=== PATIENT | female | born 1965 | race Two or more races ===

== ENCOUNTER 2016-07-11 21:01 | Inpatient (IN) | payer OTHER ==
[~2016-07-11] VITALS: Ht 160 cm; Wt 87.5 kg
[2016-07-11 21:01] VITALS: BP 124/83
[2016-07-11] MEDS ORDERED: Enoxaparin 80mg Inj SUBQ ONE (21:15)
[2016-07-11 21:33] LABS: BASOPHILS % (AUTO) 1.1 % (0.0-2.0); EOSINOPHILS % (AUTO) 1.1 % (0.0-3.0); LYMPHOCYTES % (AUTO) 40.7 % (20.0-45.0); MEAN CORPUSCULAR HEMOGLOBIN 29.8 PG (27.0-31.0); MEAN CORPUSCULAR HGB CONC 33.9 G/DL (32.0-36.0); MEAN CORPUSCULAR VOLUME 88 FL (80-99); MEAN PLATELET VOLUME 8.3 FL (6.5-10.1); MONOCYTES % (AUTO) 5.3 % (1.0-10.0); NEUTROPHILS % (AUTO) 51.8 % (45.0-75.0); PLATELET COUNT 207 K/UL (150-450); RED BLOOD COUNT 4.21 M/UL (4.20-5.40); RED CELL DISTRIBUTION WIDTH 12.9 % (11.6-14.8); WHITE BLOOD COUNT 10.8 K/UL (4.8-10.8)
--- NOTE | 2016-07-11 21:43 | Emergency Room Report ---
History of Present Illness General Chief Complaint: Chest Pain Source: Patient, EMS Present Illness HPI This is a 51-year-old female with history hypertension. She presents with chief complaint of chest pain this started around noon today. She was at work when this happened. She was mild initially but through the day got worse. Worse with exertion. When she became short of breath and diaphoretic she went to urgent care. Pain was 8/10. Worse with exertion. Better with rest. She also has radiation to the left arm. Urgent care gave her aspirin and nitroglycerin. 911 was called. She felt better now. Allergies: Coded Allergies: PENICILLINS (Unverified Allergy, Unknown, 07/11/16) Patient History Past Medical History: see triage record, old chart reviewed, HTN Past Surgical History: other Pertinent Family History: none Social History: Denies: smoking Last Menstrual Period: n/a Now: No Immunizations: other Reviewed Nursing Documentation: PMH: Agreed, PSxH: Agreed Review of Systems Eye: Denies: blurred vision, eye pain ENT: Denies: ear pain, nose congestion, throat swelling Respiratory: Denies: cough, shortness of breath Cardiovascular: Reports: chest pain, Denies: palpitations Gastrointestinal: Denies: abdominal pain, diarrhea, nausea, vomiting Musculoskeletal: Denies: back pain, joint pain Skin: Denies: rash Neurological: Denies: headache, numbness Endocrine: Denies: increased thirst, increased urine Hematologic/Lymphatic: Denies: easy bruising All Other Systems: negative except mentioned in HPI Physical Exam Vital Signs Date Time Temp Pulse Resp B/P Pulse Ox O2 Delivery O2 Flow Rate FiO2 07/11/16 20:52 98.4 84 18 150/82 96 Room Air vitals with hypertension. Blood pressure now is 120/76 Sp02 EP Interpretation: reviewed, normal General Appearance: well appearing, no apparent distress, alert Head: normocephalic, atraumatic Eyes: bilateral eye EOMI, bilateral eye PERRL ENT: hearing grossly normal, normal pharynx Neck: full range of motion, supple, no meningismus Respiratory: chest non-tender, lungs clear, normal breath sounds Cardiovascular #1: regular rate, rhythm, no murmur Gastrointestinal: normal bowel sounds, non tender, no mass, no organomegaly, no bruit, non-distended Musculoskeletal: back normal, normal range of motion Neurologic: alert, oriented x3 Psychiatric: mood/affect normal Skin: warm/dry Medical Decision Making Diagnostic Impression: Primary Impression: ACS (acute coronary syndrome) ER Course Patient presents with symptom concerning for ACS and unstable angina. EKG showed no ST elevation. Troponin negative. No evidence of PE, dissection, HI, pneumonia to name a few. Since patient is asymptomatic now, with try to transfer to [place] based on her insurance. If unable will admit here to Dr. Pruitt. Patient already received aspirin and nitroglycerin. I gave her Lovenox here. Beta sinai is held this moment because initial blood pressure was in the low 100. Laboratory Tests Test 07/11/16 21:17 White Blood Count 10.8 K/UL (4.8-10.8) Red Blood Count 4.21 M/UL (4.20-5.40) Hemoglobin 12.5 G/DL (12.0-16.0) Hematocrit 37.0 % (37.0-47.0) Mean Corpuscular Volume 88 FL (80-99) Mean Corpuscular Hemoglobin 29.8 PG (27.0-31.0) Mean Corpuscular Hemoglobin Concent 33.9 G/DL (32.0-36.0) Red Cell Distribution Width 12.9 % (11.6-14.8) Platelet Count 207 K/UL (150-450) Mean Platelet Volume 8.3 FL (6.5-10.1) Neutrophils (%) (Auto) 51.8 % (45.0-75.0) Lymphocytes (%) (Auto) 40.7 % (20.0-45.0) Monocytes (%) (Auto) 5.3 % (1.0-10.0) Eosinophils (%) (Auto) 1.1 % (0.0-3.0) Basophils (%) (Auto) 1.1 % (0.0-2.0) Prothrombin Time 10.0 SEC (9.30-11.50) Prothromb Time International Ratio 1.0 (0.9-1.1) Activated Partial Thromboplast Time 25 SEC (23-33) Sodium Level 140 mEQ/L (135-145) Potassium Level 4.1 mEQ/L (3.4-4.9) Chloride Level 100 mEQ/L (98-107) Carbon Dioxide Level 23 mEQ/L (20-30) Anion Gap 17 (5-15) H Blood Urea Nitrogen 24 mg/dL (7-23) H Creatinine 0.7 mg/dL (0.5-0.9) Estimat Glomerular Filtration Rate > 60 mL/min (>60) Glucose Level 117 mg/dL (74-106) H Calcium Level 9.4 mg/dL (8.6-10.2) Total Bilirubin < 0.2 mg/dL (0.0-1.2) Aspartate Amino Transf (AST/SGOT) 27 U/L (5-40) Alanine Aminotransferase (ALT/SGPT) 33 U/L (3-33) Alkaline Phosphatase 56 U/L (35-104) Total Creatine Kinase 65 U/L (26-140) Creatine Kinase MB < 1.5 ng/mL (< 3.8) Creatine Kinase MB Relative Index 2.3 Troponin I < 0.30 ng/mL (<=0.30) Pro-B-Type Natriuretic Peptide 23 pg/mL (0-125) Total Protein 7.2 g/dL (6.6-8.7) Albumin 4.4 g/dL (3.5-5.2) Globulin 2.8 g/dL Albumin/Globulin Ratio 1.5 (1.0-2.7) Lab Results Impression labs unremarkable EKG Diagnostic Results Rate: normal Rhythm: NSR ST Segments: no acute changes Rhythm Strip Diag. Results EP Interpretation: yes Rate: 83 Rhythm: NSR, no PVC's, no ectopy Chest X-Ray Diagnostic Results EP Interpretation: Yes Findings: no consolidation, no effusion, no pneumothorax, no acute cardiopulmonary disease Number of Views: 1 Last Vital Signs Date Time Temp Pulse Resp B/P Pulse Ox O2 Delivery O2 Flow Rate FiO2 07/11/16 21:01 98.4 87 18 124/83 96 Room Air Status: improved Disposition: ADMITTED INPATIENT Condition: Serious Referrals: GILDA,REFERRING (PCP) ANNA RUTHERFORD M.D. Jul 11, 2016 21:43
[2016-07-11 21:48] LABS: ALANINE AMINOTRANSFERASE 33 U/L (3-33); ALBUMIN/GLOBULIN RATIO 1.5 (1.0-2.7); ANION GAP 17 (5-15); ASPARTATE AMINO TRANSFERASE 27 U/L (5-40); CALCIUM 9.4 mg/dL (8.6-10.2); CARBON DIOXIDE 23 mEQ/L (20-30); CHLORIDE 100 mEQ/L (98-107); CREATININE 0.7 mg/dL (0.5-0.9); GLOMERULAR FILTRATION RATE > 60 mL/min (>60); HEMOLYSIS 128; POTASSIUM 4.1 mEQ/L (3.4-4.9); SODIUM 140 mEQ/L (135-145); TOTAL PROTEIN 7.2 g/dL (6.6-8.7); TROPONIN I < 0.30 ng/mL (<=0.30)
[2016-07-11 21:59] LABS: CKMB < 1.5 ng/mL (< 3.8)
[2016-07-11] MEDS ORDERED: LIPITOR40 MG ORAL (22:18)
[2016-07-11] MEDS ORDERED: Nitroglycerin 2% oint pkt TOPIC ONE (22:30)
[2016-07-11] MEDS ORDERED: Metoprolol 5mg/5ml Inj IVP ONE (22:30)
[2016-07-11 22:52] VITALS: BP 133/74
[2016-07-11 23:21] LABS: APPEARANCE,URINE CLEAR; KETONES,URINE NEGATIVE (NEGATIVE); LEUKOCYTE ESTERASE ,URINE 1+ (NEGATIVE); NITRITE,URINE NEGATIVE (NEGATIVE); PH,URINE 6.5 (4.5-8.0); PROTEIN,URINE NEGATIVE (NEGATIVE); UROBILINOGEN,URINE NORMAL MG/DL (0.0-1.0)
[2016-07-11 23:49] LABS: SQUAMOUS EPITHELIAL CELL,UR MANY /LPF (NONE/OCC); WBC,URINE 0-2 /HPF (0 - 2)
--- NOTE | 2016-07-12 03:30 | Consultation ---
DATE OF CONSULTATION: 07/11/2016 CARDIOLOGY CONSULTATION REQUESTING PHYSICIAN: Randy Pruitt M.D. REASON FOR CONSULTATION: Chest pain. HISTORY OF PRESENT ILLNESS: This is a 51-year-old female, who has a history of hyperlipidemia. She notes that she was at work today and somewhat of a busy day on Monday, she felt heaviness and pressure in her chest. She had some diaphoresis. She did not notice any improvement and went home to rest. The symptoms persisted until around 6 or 7 o'clock and she came to this emergency room after being evaluated at an urgent care. The pain was apparently worse with exertion and associated with some diaphoresis. There was radiation to her left arm. She has never had such symptoms in the past. PAST MEDICAL HISTORY: Hyperlipidemia. ALLERGIES: Penicillin. MEDICATIONS: Include a statin drug. SOCIAL HISTORY: Negative for smoking or alcohol abuse. REVIEW OF SYSTEMS: She is quite physically active. She walks and climbs hills during her regular exercises. There is no history of diabetes or thyroid disorder. She denies any history of leg swelling or blood clotting. There is no history of asthma. There is no history of melena, bright red blood per rectum, or kidney disorder. PHYSICAL EXAMINATION: GENERAL: She is in no acute distress presently. VITAL SIGNS: Blood pressure 132/76, heart rate 62, and respiratory rate 18. She is afebrile. HEENT: Normocephalic and atraumatic. Conjunctivae are pink. Oropharynx is clear. NECK: Supple. Jugular venous pressure normal. No bruits. LUNGS: Clear. CHEST: Chest wall without tenderness. CARDIAC: Regular rhythm and rate. Normal S1 and S2 with no murmur. ABDOMEN: Soft and nontender. EXTREMITIES: No edema. LABORATORY AND DIAGNOSTIC DATA: EKG reveals sinus rhythm, slightly decreased R-wave progression and nonspecific T-wave changes. Troponin is negative. Hemoglobin is 12.5. Chemistry panel within normal limits. IMPRESSION: 1. Acute coronary syndrome. 2. History of hyperlipidemia. PLAN: 1. Cardiac monitoring. 2. Beta-blockade. 3. Oral aspirin. 4. High-dose Lovenox. 5. Serial troponin levels. 6. Lipid panel. 7. Continue statin drug. If signs of acute ischemia or elevated troponin levels are noted coronary angiography will be arranged. Otherwise, we will consider exercise stress test for assessment of coronary flow reserve. Christiano Alvarez M.D. DR: TONIO JOB#: [id number] CC:
[2016-07-12 04:00] VITALS: BP 104/58
[2016-07-12 08:00] VITALS: BP 111/74
[2016-07-12 08:25] LABS: ALANINE AMINOTRANSFERASE 33 U/L (3-33); ALBUMIN/GLOBULIN RATIO 1.7 (1.0-2.7); ANION GAP 17 (5-15); ASPARTATE AMINO TRANSFERASE 19 U/L (5-40); CALCIUM 9.4 mg/dL (8.6-10.2); CARBON DIOXIDE 22 mEQ/L (20-30); CHLORIDE 99 mEQ/L (98-107); CHOLESTEROL 279 mg/dL (< 200); CREATININE 0.6 mg/dL (0.5-0.9); GLOMERULAR FILTRATION RATE > 60 mL/min (>60); HEMOLYSIS 3; LDL CHOLESTEROL (CALC.) 170 mg/dL (60-99); SODIUM 138 mEQ/L (135-145); TOTAL PROTEIN 7.1 g/dL (6.6-8.7)
[2016-07-12 08:58] LABS: TROPONIN I < 0.30 ng/mL (<=0.30)
[2016-07-12] MEDS ORDERED: Heparin 5000 units/ml inj SUBQ SCH (09:00)
[2016-07-12] MEDS: Metoprolol Tartrate 12.5mg TAB ORAL SCH ×2 (09:00→20:52)
[2016-07-12] MEDS ORDERED: Enoxaparin 60mg Inj SUBQ SCH (09:00)
--- NOTE | 2016-07-12 10:59 | Diagnostic Imaging Report ---
Indication: Chest Pain Comparison: None A single view chest radiograph was obtained. Findings: Cardiomediastinal appearance is within normal limits for age. Pulmonary vascularity is appropriate. The diaphragmatic contour is smooth and costophrenic angles are sharp. No pleural effusions are identified. The bones are unremarkable. Impression: No acute findings
--- NOTE | 2016-07-12 11:48 | History & Physical ---
History and Physical History & Physicial dict ACS HPLD await results of nuc stress may need to have coronary angio YONG RANGEL Jul 12, 2016 11:48
[2016-07-12] MEDS ORDERED: Enoxaparin Sodium 300mg/3ml vial SUBQ SCH (14:00)
[2016-07-12 16:00] VITALS: BP 131/53
--- NOTE | 2016-07-12 19:30 | History and Physical Report ---
DATE OF ADMISSION: 07/11/2016 HISTORY OF PRESENT ILLNESS: The patient is a pleasant 51-year-old woman, who developed chest heaviness and diaphoresis while at work yesterday. She works in an office. She went home and the pain persisted for several hours. She was diaphoretic when she arrived at the urgent care and was sent to the emergency department here. She was admitted. Her troponins are negative. She is presently having a stress test and states that she is having some pain at the conclusion of the exercise portion. PAST MEDICAL HISTORY: She never had cardiac disease to her knowledge. She does have hyperlipidemia, but does not have hypertension. She does not have diabetes, but her A1c was elevated at 5.9 two months ago. There is a history of mild asthma, back pain, abdominoplasty, appendectomy, and hysterectomy. MEDICATIONS: Lipitor and omega-3. ALLERGIES: Penicillin. FAMILY HISTORY: She has a family history of early heart disease in the father, who had bypass surgery in his late 50s. SOCIAL HISTORY: She never smoked. She does not use drugs or alcohol. REVIEW OF SYSTEMS: Otherwise unremarkable. PHYSICAL EXAMINATION: GENERAL: The patient is alert and responds appropriately. The patient is overweight. VITAL SIGNS: Show blood pressure is presently normal, but was elevated at 150/82 when she arrived. She was diaphoretic when she was seen earlier, but not when I examined her. HEENT: The head is normocephalic. NECK: No jugular venous distention. CHEST: Clear. CARDIAC: Rhythm is regular. ABDOMEN: Soft and nontender. EXTREMITIES: No edema. LABORATORY AND DIAGNOSTIC DATA: Laboratory studies, x-rays, as well as EKG have been reviewed. IMPRESSION: 1. Acute coronary syndrome with chest pain and diaphoresis. 2. Hyperlipidemia. 3. Prediabetes. 4. Mild asthma, inactive. PLAN: The patient will complete her stress test and may require transfer for coronary angiography if abnormalities are identified. Randy Pruitt M.D. DR: AURORA JOB#: [id number] CC: Randy Pruitt M.D.; Fax#: [phone] Armand Alvarez
[2016-07-12 20:00] VITALS: BP 118/69
[2016-07-12 20:52] VITALS: BP 118/69
[2016-07-12] MEDS ORDERED: Atorvastatin 20mg tab ORAL SCH (21:00)
--- NOTE | 2016-07-13 02:15 | Progress Note ---
DATE: 07/12/2016 CARDIOLOGY PROGRESS NOTE: SUBJECTIVE: The patient with no new recurrent chest pain and no shortness of breath. Troponin is negative. Lipid panel is severely abnormal. Total cholesterol is 279, LDL 170, HDL 31, and triglycerides 389. TSH is 1.1. Chemistry panel is within normal limits. OBJECTIVE: VITAL SIGNS: Blood pressure is 131/53, pulse 72, respirations 18, and temperature 99.3 degrees. NECK: Supple. LUNGS: Clear. CARDIAC: Regular rhythm and rate. Normal S1 and S2 with no murmur. ABDOMEN: Soft. EXTREMITIES: No edema. IMPRESSION: 1. Acute coronary syndrome. 2. Severe hyperlipidemia. 3. Glucose intolerance. PLAN: 1. Exercise myocardial perfusion scan. If no signs of perfusion defects or clinical signs of ischemia, we will manage as an outpatient and this should include long-term anti-platelet therapy with low-dose aspirin and high-dose statin drugs with possible use of low-dose gemfibrozil as well. Outpatient lipid management is recommended. Diabetic diet, and weight loss as well as exercise program is suggested as well. 2. Should the patient's perfusion scan be abnormal, we will arrange for transfer to [facility] for coronary angiography. Christiano Alvarez M.D. DR: Christopher JOB#: [id number] CC:
--- NOTE | 2016-07-13 09:39 | Diagnostic Imaging Report ---
Indication: chest pain Technique: The study was conducted under the supervision of a brush sander. Exercise on a treadmill utilizing (Arturo protocol) followed by intravenous administration of 34.8 mCi of technetium 99m Myoview was performed. Three plane SPECT imaging of the heart was then performed. A resting study was performed as part of the one-day protocol with 35 mCi of technetium 99m myoview injected intravenously at that time. Three plane SPECT imaging of the heart was obtained. Comparison: None Clinical data: Patient exercised for 11 minutes 17 seconds. The left of the [because exertional level was achieved. Resting heart rate: 76. Peak exercise heart rate: 146 (87% of the maximum predicted heart rate) target reached. Resting BP: 152/82. Peak exercise BP: 169/82 1. Clinical response: Nondiagnostic as chest pain has been present for the past few days. 2. Electrocardiographic response: Ischemic. 1-1.[address] depression in inferior and lateral leads. Findings: The myocardial perfusion scan demonstrates normal perfusion to all segments on both resting and stress SPECT imaging. LVEF 85%, which is probably an overestimation. Impression: Negative myocardial SPECT perfusion scan. Clinical data unresponsive highly suggestive of ischemia as discussed above. Clinical information per brush sander.
--- NOTE | 2016-07-13 18:32 | Discharge Summary ---
Discharge Summary Hospital Course Date of Admission Jul 11, 2016 at 21:50 Date of Discharge Jul 12, 2016 at 21:15 Admitting Diagnosis ACUTE CORONARY SYNDROME HPI Emma Jonas is a 51 year old female who was admitted on Jul 11, 2016 at 21:50 for Acute Coronary Syndrome Hospital Course [id number] Discharge Discharge Disposition Patient was discharged to [facility] Discharge Diagnoses: Estelle Davis NP Jul 13, 2016 18:32
--- NOTE | 2016-07-14 02:16 | Discharge Summary 2 SIG ---
DATE OF ADMISSION: 07/11/2016 DATE OF DISCHARGE: 07/12/2016 REVERBERATORY FURNACE OPERATOR: Dr. Christiano Alvarez. BRIEF HOSPITAL COURSE: The patient is a 51-year-old female, who developed chest heaviness and diaphoresis while at work. She went home, the pain persisted for several hours. She went to the urgent care and was sent to the emergency department. She was admitted for cardiac monitoring and underwent cardiac evaluation with Dr. Alvarez. EKG revealed sinus rhythm with a slightly decreased R-wave progression and nonspecific T-wave changes. Troponins have been negative. She underwent a myocardial stress test and was subsequently transferred to [facility]. DISPOSITION: The patient was transferred to [facility]. FINAL DIAGNOSES: 1. Acute coronary syndrome. 2. Hyperlipidemia. 3. Prediabetes. 4. Mild asthma, inactive. Randy Pruitt M.D. I have been assigned to dictate discharge summary on this account and I was not involved in the patient's management. Estelle Davis N.P. DR: CIRILO JOB#: [id number] CC: YARELI
--- NOTE | 2016-07-14 09:09 | Cardiology Report ---
APPROVED REPORT EKG Measurement Heart [id number] Normal sinus rhythm Cannot rule out Anterior infarct, age undetermined Abnormal ECG t wave inversion v1-4 ischemia not excluded cliniccal corelation recommended
== END 2016-07-12 21:15 | disposition short-term general hospital (02) | DRG 311 ==
LOC: EDBD 21:01 → EMR 21:21 → 2E 21:50 → EDBEDREQ 22:15 → 2E 23:34
DX: I24.9 Acute ischemic heart disease, unspecified (principal); E78.5 Hyperlipidemia, unspecified; J45.909 Unspecified asthma, uncomplicated; Z88.0 Allergy status to penicillin; R73.03 Prediabetes
CPT/HCPCS: 36415; 71010; 78452; 80053; 80061; 81003; 82550; 82553; 83880; 84443; 84484; 85025; 85610; 85730; 93005; 93017